=== PATIENT | male | born 1990 | race Caucasian/White ===

== ENCOUNTER 2016-12-28 22:31 | Inpatient (IN) | payer MEDICAID ==
[~2016-12-28] VITALS: Ht 177.8 cm; Wt 72.2 kg
[~2016-12-28 22:31] MED LIST: HALO10 PO; HALO5 PO
[2016-12-29 07:23] VITALS: BP 124/75
[2016-12-29] MEDS ORDERED: ZOLPIDEM TARTRATE 10 MG TABLET PO PRN (10:15)
[2016-12-29] MEDS ORDERED: LORazepam 2 MG TABLET PO PRN (10:15)
[2016-12-29 11:03] VITALS: BP 120/80
[2016-12-29 20:52] VITALS: BP 118/76
[2016-12-30 08:30] VITALS: BP 114/74
[2016-12-30 17:39] VITALS: BP 112/62
[2016-12-30] MEDS: OLANZapine 5 MG TABLET PO SCH (20:56)
[2016-12-31 08:00] VITALS: BP 121/72
[2016-12-31] MEDS: FLUoxetine HCL 20 MG CAPSULE PO SCH (09:01)
[2016-12-31 16:59] VITALS: BP 103/57
[2016-12-31] MEDS: OLANZapine 5 MG TABLET PO SCH (20:16)
[2017-01-01 09:00] VITALS: BP 117/66
[2017-01-01] MEDS: FLUoxetine HCL 20 MG CAPSULE PO SCH (09:11)
[2017-01-01 16:51] VITALS: BP 106/68
[2017-01-01] MEDS: OLANZapine 5 MG TABLET PO SCH (20:59)
[2017-01-02] MEDS: FLUoxetine HCL 20 MG CAPSULE PO SCH (09:27)
[2017-01-02 09:30] VITALS: BP 125/69
[2017-01-02 16:45] VITALS: BP 120/73
[2017-01-02] MEDS: OLANZapine 5 MG TABLET PO SCH (21:10)
[2017-01-03 09:30] VITALS: BP 112/61
[2017-01-03] MEDS: FLUoxetine HCL 20 MG CAPSULE PO SCH (10:07)
[2017-01-03 17:00] VITALS: BP 118/76
[2017-01-03] MEDS: OLANZapine 5 MG TABLET PO SCH (20:54)
[2017-01-04 08:00] VITALS: BP 110/68
[2017-01-04] MEDS: FLUoxetine HCL 20 MG CAPSULE PO SCH (08:57)
[2017-01-04 16:30] VITALS: BP 105/60
[2017-01-04] MEDS: OLANZapine 5 MG TABLET PO SCH (20:30)
[2017-01-05] MEDS: FLUoxetine HCL 20 MG CAPSULE PO SCH (08:42)
[2017-01-05 10:02] VITALS: BP 107/71
[2017-01-05 16:35] VITALS: BP 116/74
[2017-01-05] MEDS: OLANZapine 5 MG TABLET PO SCH (20:10)
[2017-01-06 08:53] VITALS: BP 123/84
[2017-01-06] MEDS: FLUoxetine HCL 20 MG CAPSULE PO SCH (09:04)
[2017-01-06 20:20] VITALS: BP 112/72
[2017-01-06] MEDS: OLANZapine 5 MG TABLET PO SCH (20:57)
[2017-01-07 08:43] VITALS: BP 129/75
[2017-01-07] MEDS: FLUoxetine HCL 20 MG CAPSULE PO SCH (10:27)
[2017-01-07] MEDS ORDERED: OLAN10TA3 PO (10:54)
[2017-01-07] MEDS ORDERED: FLUO-191 PO (10:54)
[2017-01-07] MEDS ORDERED: OLANZapine 10 MG TABLET PO SCH (21:00)
[2017-01-08] MEDS ORDERED: FLUoxetine HCL 20 MG CAPSULE PO SCH (09:00)
== END 2017-01-07 13:30 | disposition home or self-care (01) | DRG 750 ==
LOC: 3EI 12-29 10:24
PROVIDERS: ADMIT Psychiatry & Neurology Psychiatry; ATTEND Psychiatry & Neurology Psychiatry
DX: F25.1 Schizoaffective disorder, depressive type (principal); R45.851 Suicidal ideations; Z59.0 Homelessness; F12.90 Cannabis use, unspecified, uncomplicated; R45.84 Anhedonia; F17.200 Nicotine dependence, unspecified, uncomplicated; F19.20 Other psychoactive substance dependence, uncomplicated; F60.3 Borderline personality disorder; Z63.9 Problem related to primary support group, unspecified; L55.9 Sunburn, unspecified; L81.8 Other specified disorders of pigmentation

== ENCOUNTER 2019-02-28 19:07 | Inpatient (IN) | payer MEDICAID, OTHER ==
[~2019-02-28] VITALS: Ht 180.3 cm; Wt 75.2 kg
[~2019-02-28 19:07] MED LIST changes: +FLUO-191 PO; -HALO10 PO; -HALO5 PO; +OLAN10TA3 PO
[2019-02-28] MEDS ORDERED: DiphenhydrAMINE HCL 50 MG/ML VIAL IM ONE (19:45)
[2019-02-28] MEDS ORDERED: HALOPERIDOL LACTATE 5 MG/ML VIAL IM ONE (19:45)
[2019-02-28] MEDS ORDERED: LORazepam 2 MG/ML VIAL IM ONE ×2 (19:45→21:45)
[2019-02-28 20:55] LABS: BASOPHILS % (AUTO) 0.8 % (0.0-2.0); EOSINOPHILS % (AUTO) 0.1 % (1.0-6.0); HEMATOCRIT 40.4 % (41-53); HEMOGLOBIN 13.8 g/dL (13.5-17.5); LYMPHOCYTES # (AUTO) 1.5 K/uL (1.0-4.8); LYMPHOCYTES % (AUTO) 21.7 % (22.0-44.0); MEAN CORPUSCULAR HEMOGLOBIN 30.7 pg (26.0-34.0); MEAN CORPUSCULAR VOLUME 90 fL (80-100); MONOCYTES # (AUTO) 0.6 K/uL (0.1-1.0); MONOCYTES % (AUTO) 8.8 % (2.0-9.0); NEUTROPHILS # (AUTO) 4.8 K/uL (1.8-7.7); NEUTROPHILS % (AUTO) 68.6 % (40.0-70.0); PLATELET COUNT (AUTO) 242 K/uL (150-450); RED BLOOD CELL COUNT(AUTO) 4.48 MIL/uL (4.50-5.90); RED CELL DISTRIBUTION WIDTH 13.1 % (11.5-14.5)
[2019-02-28 21:27] LABS: ANION GAP 6 mmol/L (8-16); CALCIUM, TOTAL 9.1 mg/dL (8.8-10.5); CARBON DIOXIDE 26 mmol/L (22-29); CHLORIDE 104 mmol/L (98-107); CREATININE 1.11 mg/dL (0.60-1.30); GLOMERULAR FILTR. RATE CALC > 60 mL/min (>60); GLUCOSE,RANDOM 107 mg/dL (70-110); POTASSIUM 3.4 mmol/L (3.5-5.1); SODIUM SERUM 136 mmol/L (136-145); UREA NITROGEN, BLOOD 15 mg/dL (7-18)
[2019-02-28 21:33] LABS: SALICYLATE < 2.8 mg/dL (2.8-20.0)
[2019-02-28 21:40] LABS: ALANINE AMINOTRANSFERASE 27 U/L (12-78); ALBUMIN 4.3 g/dL (3.4-5.0); ALKALINE PHOSPHATASE 42 U/L (46-116); ASPARTATE AMINOTRANSFERASE 54 U/L (15-37); BILIRUBIN,TOTAL 0.8 mg/dL (0.1-1.0); TOTAL PROTEIN, SERUM 7.1 g/dL (6.4-8.2)
[2019-02-28 21:44] LABS: CREATINE KINASE, TOTAL ONLY 1313 U/L (39-308)
[2019-02-28 21:55] LABS: ACETAMINOPHEN < 2 mcg/mL (10-30)
[2019-02-28] MEDS ORDERED: MIDAZOLAM HCL 2 MG/2 ML VIAL IVP ONE (23:00)
[2019-02-28] MEDS ORDERED: MIDAZOLAM HCL 5 MG/ML VIAL IM ONE (23:00)
[2019-03-01] MEDS ORDERED: MIDAZOLAM HCL 2 MG/2 ML VIAL IVP ONE
[2019-03-01 00:55] LABS: APPEARANCE,URINE CLEAR (CLEAR); GLUCOSE, URINE (UA) NEGATIVE (NEGATIVE); KETONES,URINE TRACE mg/dL (NEGATIVE); LEUKOCYTE ESTERASE ,URINE NEGATIVE (NEGATIVE); NITRATE,URINE NEGATIVE (NEGATIVE); OCCULT BLOOD,URINE NEGATIVE (NEGATIVE); PH,URINE 5.5 (5.0-8.0); PROTEIN,URINE NEGATIVE (NEGATIVE)
[2019-03-01 00:57] LABS: BILIRUBIN,URINE PRELIM. POSITIVE (NEGATIVE)
[2019-03-01 01:00] LABS: AMPHET/METH SCREEN,URINE POSITIVE (NEGATIVE); BARBITURATE SCREEN, URINE NEGATIVE (NEGATIVE); BENZODIAZEPINES SCREEN,URINE POSITIVE (NEGATIVE); CANNABINOID SCREEN,URINE POSITIVE (NEGATIVE); COCAINE SCREEN,URINE NEGATIVE (NEGATIVE); METHADONE SCREEN, URINE NEGATIVE (NEGATIVE); OPIATE SCREEN,URINE NEGATIVE (NEGATIVE)
[2019-03-01 01:03] LABS: PHENCYCLIDINE SCREEN,URINE NEGATIVE (NEGATIVE)
[2019-03-01 01:13] LABS: RBC,URINE 0-2 /HPF (0-2); WBC,URINE 0-2 /HPF (0-5)
[2019-03-01 01:14] LABS: BACTERIA,URINE Few /HPF (None Seen); MUCUS,URINE Moderate LPF (None Seen); SQUAMOUS EPITHELIAL CELL,UR Few /LPF (None Seen)
[2019-03-01] MEDS ORDERED: ZOLPIDEM TARTRATE 10 MG TABLET PO PRN (09:30)
[2019-03-01] MEDS ORDERED: LORazepam 2 MG TABLET PO PRN (09:30)
[2019-03-01] MEDS ORDERED: HALOPERIDOL 5 MG TABLET PO PRN (09:30)
[2019-03-01 13:50] VITALS: BP 118/62
[2019-03-01] MEDS ORDERED: DiphenhydrAMINE HCL 50 MG/ML VIAL ONE (14:54)
[2019-03-01] MEDS ORDERED: LORazepam 2 MG/ML VIAL ONE (14:54)
[2019-03-01] MEDS ORDERED: HALOPERIDOL LACTATE 5 MG/ML VIAL ONE (14:54)
[2019-03-01] MEDS ORDERED: LORazepam 2 MG/ML VIAL IM ONE (15:00)
[2019-03-01] MEDS ORDERED: DiphenhydrAMINE HCL 50 MG/ML VIAL IM ONE (15:00)
[2019-03-01] MEDS ORDERED: HALOPERIDOL LACTATE 5 MG/ML VIAL IM ONE (15:00)
[2019-03-02] MEDS ORDERED: POTASSIUM CHLORIDE 20 MEQ ER TABLET PO ONE (13:00)
== END 2019-03-03 15:05 | disposition home or self-care (01) | DRG 750 ==
LOC: EMS 19:09 → 3EI 03-01 12:19 → 3EC 03-01 12:27
PROVIDERS: ADMIT Psychiatry & Neurology Psychiatry; ATTEND Psychiatry & Neurology Psychiatry
DX: F25.9 Schizoaffective disorder, unspecified (principal); G40.909 Epilepsy, unspecified, not intractable, without status epilepticus; F15.10 Other stimulant abuse, uncomplicated; F90.9 Attention-deficit hyperactivity disorder, unspecified type; F17.210 Nicotine dependence, cigarettes, uncomplicated; Z91.14 Patient's other noncompliance with medication regimen; Z79.899 Other long term (current) drug therapy
CPT/HCPCS: 70450; 93005; 99291; G0480; G0481; J1200; J1630; J2060; J2250

== ENCOUNTER 2019-09-12 14:26 | Emergency (ER) | payer MEDICAID, OTHER ==
[~2019-09-12] VITALS: Ht 180.3 cm; Wt 66.5 kg
[2019-09-12] MEDS ORDERED: LORazepam 2 MG/ML VIAL IVP ONE (15:15)
[2019-09-12 15:37] LABS: BASOPHILS % (AUTO) 1.2 % (0.0-2.0); EOSINOPHILS % (AUTO) 1.9 % (1.0-6.0); HEMATOCRIT 41.9 % (41-53); HEMOGLOBIN 14.2 g/dL (13.5-17.5); LYMPHOCYTES # (AUTO) 1.7 K/uL (1.0-4.8); LYMPHOCYTES % (AUTO) 22.1 % (22.0-44.0); MEAN CORPUSCULAR HEMOGLOBIN 30.4 pg (26.0-34.0); MEAN CORPUSCULAR HGB CONC 33.9 G/dL (31.0-37.0); MEAN CORPUSCULAR VOLUME 90 fL (80-100); MONOCYTES # (AUTO) 0.7 K/uL (0.1-1.0); MONOCYTES % (AUTO) 9.1 % (2.0-9.0); NEUTROPHILS % (AUTO) 65.7 % (40.0-70.0); PLATELET COUNT (AUTO) 302 K/uL (150-450); RED BLOOD CELL COUNT(AUTO) 4.67 MIL/uL (4.50-5.90); RED CELL DISTRIBUTION WIDTH 13.2 % (11.5-14.5)
[2019-09-12 15:48] LABS: ANION GAP 8 mmol/L (8-16); CARBON DIOXIDE 27 mmol/L (22-29); CHLORIDE 99 mmol/L (98-107); CREATININE 1.06 mg/dL (0.60-1.30); GLOMERULAR FILTR. RATE CALC > 60 mL/min (>60); GLUCOSE,RANDOM 126 mg/dL (70-110); POTASSIUM 3.5 mmol/L (3.5-5.1); SODIUM SERUM 134 mmol/L (136-145); UREA NITROGEN, BLOOD 24 mg/dL (7-18)
[2019-09-12 15:50] LABS: ALANINE AMINOTRANSFERASE 27 U/L (12-78); ALBUMIN 4.2 g/dL (3.4-5.0); ALKALINE PHOSPHATASE 62 U/L (46-116); ASPARTATE AMINOTRANSFERASE 29 U/L (15-37); BILIRUBIN,TOTAL 0.5 mg/dL (0.1-1.0); LIPASE 69 U/L (73-393); TOTAL PROTEIN, SERUM 7.6 g/dL (6.4-8.2)
[2019-09-12] MEDS ORDERED: SODIUM CHLORIDE 0.9% 1,000 ML IV ONE (16:45)
[2019-09-12 16:59] LABS: AMPHET/METH SCREEN,URINE POSITIVE (NEGATIVE); BARBITURATE SCREEN, URINE NEGATIVE (NEGATIVE); BENZODIAZEPINES SCREEN,URINE NEGATIVE (NEGATIVE); CANNABINOID SCREEN,URINE POSITIVE (NEGATIVE); COCAINE SCREEN,URINE NEGATIVE (NEGATIVE); METHADONE SCREEN, URINE NEGATIVE (NEGATIVE); OPIATE SCREEN,URINE NEGATIVE (NEGATIVE)
[2019-09-12 17:01] LABS: PHENCYCLIDINE SCREEN,URINE NEGATIVE (NEGATIVE)
[2019-09-12 18:08] VITALS: BP 116/72
== END 2019-09-12 19:21 | disposition home or self-care (01) ==
LOC: EMS 14:28
DX: R11.10 Vomiting, unspecified (principal); F15.10 Other stimulant abuse, uncomplicated; F17.210 Nicotine dependence, cigarettes, uncomplicated; F20.9 Schizophrenia, unspecified; F12.90 Cannabis use, unspecified, uncomplicated
CPT/HCPCS: 36415; 80053; 80307; 83690; 85025; 96361; 96374; 99283; J2060; J7030

== ENCOUNTER 2019-12-30 14:24 | Inpatient (IN) | payer MEDICAID ==
[2019-12-31 01:20] VITALS: BP 127/71
[2019-12-31] MEDS ORDERED: ZOLPIDEM TARTRATE 10 MG TABLET PO PRN (02:00)
[2019-12-31] MEDS ORDERED: HALOPERIDOL 5 MG TABLET PO PRN (02:00)
[2019-12-31] MEDS ORDERED: PNEUMOCOCCAL VACCINE POLYVALENT 0.5 ML VIAL [PPSV23] IM ONE (02:45)
[2019-12-31] MEDS ORDERED: ALBUTEROL SULFATE HFA 90 MCG/PUFF 8 GM INHALER IH PRN (08:30)
[2019-12-31] MEDS ORDERED: ACETAMINOPHEN 325 MG TABLET PO PRN (08:30)
[2019-12-31] MEDS ORDERED: IBUPROFEN 400 MG TABLET PO PRN (08:30)
[2019-12-31] MEDS ORDERED: NICOTINE 14 MG/24 HOUR PATCH TD PRN (08:30)
[2019-12-31] MEDS ORDERED: MAGNESIUM HYDROXIDE SUSPENSION 30 ML UDCUP PO PRN (08:30)
[2019-12-31] MEDS ORDERED: GuaiFENesin/D-METHORPHAN [SUGAR-FREE] 200-20MG/10 ML SYRUP UDCUP PO PRN (08:30)
[2019-12-31] MEDS ORDERED: MAG HYDROX/AL HYDROX/SIMETH ES 30 ML SUSPENSION UDCUP PO PRN (08:30)
[2019-12-31] MEDS ORDERED: PETROLATUM,WHITE 28 GM JELLY TP PRN (08:30)
[2019-12-31] MEDS ORDERED: ONDANSETRON HCL 4 MG TABLET PO PRN (08:30)
[2019-12-31] MEDS ORDERED: LOPERAMIDE HCL 2 MG CAPSULE PO PRN (08:30)
[2019-12-31] MEDS ORDERED: CloNIDine HCL 0.1 MG TABLET PO PRN (08:30)
[2019-12-31] MEDS ORDERED: DOCUSATE SODIUM 100 MG CAPSULE PO PRN (08:30)
[2019-12-31 16:20] VITALS: BP 128/78
[2020-01-01 02:55] VITALS: BP 125/75
[2020-01-01 08:12] VITALS: BP 126/73
[2020-01-01] MEDS: LORazepam 2 MG TABLET PO PRN (08:51)
[2020-01-01 16:16] VITALS: BP 128/74
[2020-01-01] MEDS: RisperiDONE 0.5 MG TABLET PO SCH (20:09)
[2020-01-01] MEDS: BENZTROPINE MESYLATE 0.5 MG TABLET PO SCH (20:09)
[2020-01-02] MEDS: BENZTROPINE MESYLATE 0.5 MG TABLET PO SCH ×2 (08:37→20:11)
[2020-01-02] MEDS: LORazepam 2 MG TABLET PO PRN (08:37)
[2020-01-02] MEDS: DULoxetine HCL 20 MG CAPSULE PO SCH (08:37)
[2020-01-02] MEDS: RisperiDONE 0.5 MG TABLET PO SCH (20:11)
[2020-01-03 06:34] VITALS: BP 129/76
[2020-01-03] MEDS: DULoxetine HCL 20 MG CAPSULE PO SCH (08:44)
[2020-01-03] MEDS: BENZTROPINE MESYLATE 0.5 MG TABLET PO SCH (08:44)
[2020-01-03] MEDS ORDERED: RISP0.5T20 PO (11:22)
[2020-01-03] MEDS ORDERED: DULO20CA27 PO (11:22)
[2020-01-03] MEDS ORDERED: BENZ0.5T44 PO (11:22)
== END 2020-01-03 14:20 | disposition home or self-care (01) | DRG 885 ==
LOC: B3A 12-31 01:14
PROVIDERS: ADMIT Psychiatry & Neurology Child & Adolescent Psychiatry; ATTEND Psychiatry & Neurology Child & Adolescent Psychiatry
DX: F20.0 Paranoid schizophrenia (principal); G92 Toxic encephalopathy; R45.851 Suicidal ideations; F10.10 Alcohol abuse, uncomplicated; G40.909 Epilepsy, unspecified, not intractable, without status epilepticus; Z79.899 Other long term (current) drug therapy
CPT/HCPCS: 90732; G0009; Z7610

== ENCOUNTER 2022-10-11 15:48 | Inpatient (IN) | payer MEDICAID ==
[~2022-10-11] VITALS: Ht 180.3 cm; Wt 95.7 kg
[~2022-10-11 15:48] MED LIST changes: +BENZ0.5T49 PO; +DULO20CA71 PO; -FLUO-191 PO; -OLAN10TA3 PO; +RISP0.5T39 PO
[2022-10-11] MEDS ORDERED: ZOLPIDEM TARTRATE 10 MG TABLET PO PRN (21:00)
[2022-10-11 21:20] VITALS: BP 130/80; PULSE 70; RESP 18; TEMP 97.8
[2022-10-11 22:04] VITALS: BP 141/80; PULSE 68; RESP 18; TEMP 97.8
[2022-10-11] MEDS ORDERED: PROP10TA73 PO (22:29)
[2022-10-11] MEDS ORDERED: DIVA500T53 PO (22:29)
[2022-10-11] MEDS ORDERED: OLAN5TAB52 PO (22:29)
[2022-10-11] MEDS ORDERED: MULT-1366 PO (22:29)
[2022-10-11] MEDS ORDERED: PRAZ5 PO (22:29)
[2022-10-11] MEDS: NICOTINE 21 MG/24 HOUR PATCH TD SCH (23:10)
[2022-10-12] MEDS ORDERED: ALBUTEROL SULFATE HFA 90 MCG/PUFF 8 GM INHALER IH PRN (08:15)
[2022-10-12] MEDS ORDERED: DOCUSATE SODIUM 100 MG CAPSULE PO PRN (08:15)
[2022-10-12] MEDS ORDERED: GuaiFENesin/D-METHORPHAN [SUGAR-FREE] 200-20MG/10 ML SYRUP UDCUP PO PRN (08:15)
[2022-10-12] MEDS ORDERED: PETROLATUM,WHITE 28 GM JELLY TP PRN (08:15)
[2022-10-12] MEDS ORDERED: NICOTINE 14 MG/24 HOUR PATCH TD PRN (08:15)
[2022-10-12] MEDS ORDERED: MAGNESIUM HYDROXIDE SUSPENSION 30 ML UDCUP PO PRN (08:15)
[2022-10-12] MEDS ORDERED: ONDANSETRON HCL 4 MG TABLET PO PRN (08:15)
[2022-10-12] MEDS ORDERED: CloNIDine HCL 0.1 MG TABLET PO PRN (08:15)
[2022-10-12] MEDS ORDERED: LOPERAMIDE HCL 2 MG CAPSULE PO PRN (08:15)
[2022-10-12] MEDS ORDERED: IBUPROFEN 400 MG TABLET PO PRN (08:15)
[2022-10-12] MEDS ORDERED: ACETAMINOPHEN 325 MG TABLET PO PRN (08:15)
[2022-10-12] MEDS: NICOTINE 21 MG/24 HOUR PATCH TD SCH (08:48)
[2022-10-12 09:20] VITALS: BP 130/74; PULSE 71; RESP 18; TEMP 98.1; O2SAT 98
[2022-10-12] MEDS ORDERED: PROP10TA72 PO (11:52)
[2022-10-12] MEDS ORDERED: MELO-106 PO (11:52)
[2022-10-12] MEDS ORDERED: OLAN10 PO (11:52)
[2022-10-12] MEDS ORDERED: NALO4SPR3 NASAL (11:52)
[2022-10-12] MEDS ORDERED: METF-1211 PO (11:52)
[2022-10-12] MEDS ORDERED: LEVO25TA9 PO (11:52)
[2022-10-12] MEDS: GABAPENTIN 100 MG CAPSULE PO SCH ×3 (11:58→20:32)
[2022-10-12 12:29] LABS: APPEARANCE,URINE CLEAR (CLEAR); BILIRUBIN,URINE NEGATIVE (NEGATIVE); GLUCOSE, URINE (UA) NEGATIVE (NEGATIVE); KETONES,URINE NEGATIVE (NEGATIVE); LEUKOCYTE ESTERASE ,URINE NEGATIVE (NEGATIVE); NITRATE,URINE NEGATIVE (NEGATIVE); OCCULT BLOOD,URINE NEGATIVE (NEGATIVE); PROTEIN,URINE NEGATIVE (NEGATIVE); SPECIFIC GRAVITIY, URINE 1.008 (1.003-1.030); UROBILINOGEN,URINE <=1.0 mg/dL (<=1.0)
[2022-10-12] MEDS: NICOTINE POLACRILEX 2 MG LOZENGE PO PRN ×2 (12:32→15:48)
[2022-10-12 12:43] LABS: AMPHET/METH SCREEN,URINE NEGATIVE (NEGATIVE); BARBITURATE SCREEN, URINE NEGATIVE (NEGATIVE); BENZODIAZEPINES SCREEN,URINE NEGATIVE (NEGATIVE); CANNABINOID SCREEN,URINE NEGATIVE (NEGATIVE); COCAINE SCREEN,URINE NEGATIVE (NEGATIVE); METHADONE SCREEN, URINE NEGATIVE (NEGATIVE); OPIATE SCREEN,URINE NEGATIVE (NEGATIVE); PHENCYCLIDINE SCREEN,URINE NEGATIVE (NEGATIVE)
[2022-10-12] MEDS: DIVALPROEX SODIUM 500 MG ER TABLET PO SCH (20:32)
[2022-10-12] MEDS: PROPRANOLOL HCL 10 MG TABLET PO SCH (20:32)
[2022-10-12] MEDS: OLANZapine 10 MG TABLET PO SCH (20:32)
[2022-10-12] MEDS: PRAZOSIN HCL 5 MG CAPSULE PO SCH (20:32)
[2022-10-12 23:07] VITALS: RESP 18; TEMP 97.9
[2022-10-13 00:15] VITALS: BP 128/72; PULSE 69; RESP 18; TEMP 98; O2SAT 98
[2022-10-13] MEDS: GABAPENTIN 100 MG CAPSULE PO SCH ×3 (08:08→20:43)
[2022-10-13 08:55] VITALS: BP 97/55; PULSE 56; RESP 16; TEMP 97.9; O2SAT 95
[2022-10-13] MEDS: NICOTINE POLACRILEX 2 MG LOZENGE PO PRN ×3 (11:39→20:43)
[2022-10-13 20:15] VITALS: BP 116/66; PULSE 74; RESP 18; TEMP 98.3; O2SAT 97
[2022-10-13] MEDS: DIVALPROEX SODIUM 500 MG ER TABLET PO SCH (20:43)
[2022-10-13] MEDS: PRAZOSIN HCL 5 MG CAPSULE PO SCH (20:43)
[2022-10-13] MEDS: PROPRANOLOL HCL 10 MG TABLET PO SCH (20:44)
[2022-10-13] MEDS: OLANZapine 10 MG TABLET PO SCH (20:47)
[2022-10-14] MEDS: GABAPENTIN 100 MG CAPSULE PO SCH (08:03)
[2022-10-14 08:14] VITALS: BP 100/60; PULSE 63; RESP 17; TEMP 98.7; O2SAT 96
[2022-10-14] MEDS: NICOTINE POLACRILEX 2 MG LOZENGE PO PRN ×3 (12:37→18:51)
[2022-10-14] MEDS: GABAPENTIN 300 MG CAPSULE PO SCH ×2 (16:17→20:34)
[2022-10-14 20:25] VITALS: BP 122/72; PULSE 85; RESP 17; TEMP 97.9; O2SAT 98
[2022-10-14] MEDS: PROPRANOLOL HCL 10 MG TABLET PO SCH (20:34)
[2022-10-14] MEDS: OLANZapine 10 MG TABLET PO SCH (20:34)
[2022-10-14] MEDS: PRAZOSIN HCL 5 MG CAPSULE PO SCH (20:34)
[2022-10-14] MEDS: DIVALPROEX SODIUM 500 MG ER TABLET PO SCH (20:34)
[2022-10-15 08:04] VITALS: BP 96/61; PULSE 60; RESP 18; TEMP 98.3; O2SAT 96
[2022-10-15] MEDS: GABAPENTIN 300 MG CAPSULE PO SCH ×3 (08:09→20:16)
[2022-10-15] MEDS: NICOTINE POLACRILEX 2 MG LOZENGE PO PRN ×3 (11:13→19:59)
[2022-10-15 20:03] VITALS: BP 108/56; PULSE 67; RESP 19; TEMP 97.7; O2SAT 95
[2022-10-15] MEDS: PROPRANOLOL HCL 10 MG TABLET PO SCH (20:16)
[2022-10-15] MEDS: PRAZOSIN HCL 5 MG CAPSULE PO SCH (20:16)
[2022-10-15] MEDS: DIVALPROEX SODIUM 500 MG ER TABLET PO SCH (20:16)
[2022-10-15] MEDS: OLANZapine 10 MG TABLET PO SCH (20:16)
[2022-10-16] MEDS: GABAPENTIN 400 MG CAPSULE PO SCH ×2 (08:07→16:45)
[2022-10-16 08:14] VITALS: BP 114/60; PULSE 60; RESP 17; TEMP 98.2; O2SAT 96
[2022-10-16] MEDS: NICOTINE POLACRILEX 2 MG LOZENGE PO PRN ×3 (11:35→20:09)
[2022-10-16] MEDS: DIVALPROEX SODIUM 500 MG ER TABLET PO SCH (20:08)
[2022-10-16] MEDS: OLANZapine 10 MG TABLET PO SCH (20:08)
[2022-10-16] MEDS: PROPRANOLOL HCL 10 MG TABLET PO SCH (20:09)
[2022-10-16] MEDS: PRAZOSIN HCL 5 MG CAPSULE PO SCH (20:09)
[2022-10-16 20:15] VITALS: BP 129/77; PULSE 76; RESP 18; TEMP 97.9; O2SAT 98
[2022-10-17] MEDS: GABAPENTIN 300 MG CAPSULE PO SCH (08:06)
[2022-10-17 08:14] VITALS: BP 101/60; PULSE 60; RESP 17; TEMP 97.6; O2SAT 96
[2022-10-17] MEDS: NICOTINE POLACRILEX 2 MG LOZENGE PO PRN ×3 (10:10→20:12)
[2022-10-17] MEDS: DIVALPROEX SODIUM 500 MG ER TABLET PO SCH (20:12)
[2022-10-17] MEDS: PROPRANOLOL HCL 10 MG TABLET PO SCH (20:12)
[2022-10-17] MEDS: PRAZOSIN HCL 5 MG CAPSULE PO SCH (20:12)
[2022-10-17] MEDS: OLANZapine 10 MG TABLET PO SCH (20:12)
[2022-10-17 23:05] VITALS: BP 110/68; PULSE 71; RESP 17; TEMP 98; O2SAT 98
[2022-10-18] MEDS: GABAPENTIN 300 MG CAPSULE PO SCH (08:22)
[2022-10-18 11:22] VITALS: BP 103/61; PULSE 57; RESP 18; TEMP 97.6; O2SAT 96
[2022-10-18] MEDS: NICOTINE POLACRILEX 2 MG LOZENGE PO PRN ×3 (11:45→18:27)
[2022-10-18 20:09] VITALS: BP 128/73; PULSE 79; RESP 18; TEMP 98.2; O2SAT 97
[2022-10-18] MEDS: DIVALPROEX SODIUM 500 MG ER TABLET PO SCH (20:23)
[2022-10-18] MEDS: PRAZOSIN HCL 5 MG CAPSULE PO SCH (20:23)
[2022-10-18] MEDS: OLANZapine 10 MG TABLET PO SCH (20:23)
[2022-10-18] MEDS: PROPRANOLOL HCL 10 MG TABLET PO SCH (20:24)
[2022-10-19] MEDS: GABAPENTIN 300 MG CAPSULE PO SCH (08:08)
[2022-10-19 08:38] LABS: BASOPHILS % (AUTO) 0.9 % (0.0-2.0); EOSINOPHILS % (AUTO) 3.1 % (1.0-6.0); HEMATOCRIT 44.3 % (41-53); LYMPHOCYTES # (AUTO) 2.5 K/uL (1.0-4.8); LYMPHOCYTES % (AUTO) 56.5 % (22.0-44.0); MEAN CORPUSCULAR HEMOGLOBIN 31.8 pg (26.0-34.0); MEAN CORPUSCULAR HGB CONC 33.8 G/dL (31.0-37.0); MEAN CORPUSCULAR VOLUME 94 fL (80-100); MONOCYTES # (AUTO) 0.4 K/uL (0.1-1.0); MONOCYTES % (AUTO) 9.3 % (2.0-9.0); NEUTROPHILS # (AUTO) 1.3 K/uL (1.8-7.7); NEUTROPHILS % (AUTO) 30.2 % (40.0-70.0); PLATELET COUNT (AUTO) 208 K/uL (150-450); RED BLOOD CELL COUNT(AUTO) 4.71 MIL/uL (4.50-5.90); RED CELL DISTRIBUTION WIDTH 12.4 % (11.5-14.5)
[2022-10-19 08:45] VITALS: BP 102/55; PULSE 60; RESP 18; TEMP 97.8; O2SAT 98
[2022-10-19 08:58] LABS: HEMOGLOBIN A1C 5.1 % (3.8-5.6)
[2022-10-19 09:11] LABS: ALANINE AMINOTRANSFERASE 12 U/L (12-78); ALBUMIN 3.4 g/dL (3.4-5.0); ALKALINE PHOSPHATASE 46 U/L (46-116); ANION GAP 7 mmol/L (8-16); ASPARTATE AMINOTRANSFERASE 13 U/L (15-37); BILIRUBIN,TOTAL 0.3 mg/dL (0.1-1.0); CALCIUM, TOTAL 8.8 mg/dL (8.8-10.5); CARBON DIOXIDE 28 mmol/L (22-29); CHLORIDE 103 mmol/L (98-107); CHOL/HDL RATIO 4.1 (4.2-7.3); CHOLESTEROL 157 mg/dL (131-200); CREATININE 0.83 mg/dL (0.60-1.30); FREE T4 (FREE THYROXINE) 0.81 ng/dL (0.76-1.46); GLOMERULAR FILTR. RATE CALC > 60 mL/min (>60); GLUCOSE,RANDOM 122 mg/dL (70-110); HDL CHOLESTEROL 38 mg/dL (40-60); LDL CHOL (CALC.) 87 mg/dL (0-130); POTASSIUM 3.9 mmol/L (3.5-5.1); SODIUM SERUM 138 mmol/L (136-145); THYROID STIMULATING HORMONE 3.22 uIU/mL (0.36-3.74); TOTAL PROTEIN, SERUM 6.7 g/dL (6.4-8.2); TRIGLYCERIDES 161 mg/dL (15-150); VALPROIC ACID 54 mcg/mL (50-100)
[2022-10-19] MEDS: NICOTINE POLACRILEX 2 MG LOZENGE PO PRN ×3 (12:11→19:56)
[2022-10-19] MEDS: OLANZapine 10 MG TABLET PO SCH (20:04)
[2022-10-19] MEDS: PRAZOSIN HCL 5 MG CAPSULE PO SCH (20:04)
[2022-10-19] MEDS: PROPRANOLOL HCL 10 MG TABLET PO SCH (20:04)
[2022-10-19] MEDS: DIVALPROEX SODIUM 500 MG ER TABLET PO SCH (20:04)
[2022-10-19 20:17] VITALS: BP 132/75; PULSE 72; RESP 18; TEMP 98.2; O2SAT 98
[2022-10-20] VITALS (8 sets, daily range): BP systolic 107–114; BP diastolic 68; PULSE 70–78; RESP 17–19; TEMP 97.6–98.2; O2SAT 97–99
[2022-10-20] MEDS: GABAPENTIN 300 MG CAPSULE PO SCH (08:05)
[2022-10-20] MEDS: NICOTINE POLACRILEX 2 MG LOZENGE PO PRN ×3 (11:06→20:05)
[2022-10-20] MEDS: PROPRANOLOL HCL 10 MG TABLET PO SCH (20:03)
[2022-10-20] MEDS: OLANZapine 10 MG TABLET PO SCH (20:03)
[2022-10-20] MEDS: DIVALPROEX SODIUM 500 MG ER TABLET PO SCH (20:03)
[2022-10-20] MEDS: PRAZOSIN HCL 5 MG CAPSULE PO SCH (20:03)
[2022-10-21 00:10] VITALS: RESP 18
[2022-10-21] MEDS: GABAPENTIN 300 MG CAPSULE PO SCH (08:01)
[2022-10-21 08:50] VITALS: BP 100/56; PULSE 62; RESP 17; TEMP 97.2; O2SAT 96
[2022-10-21] MEDS: NICOTINE POLACRILEX 2 MG LOZENGE PO PRN ×3 (10:43→21:57)
[2022-10-21] MEDS: PROPRANOLOL HCL 10 MG TABLET PO SCH (20:36)
[2022-10-21] MEDS: PRAZOSIN HCL 5 MG CAPSULE PO SCH (20:36)
[2022-10-21] MEDS: DIVALPROEX SODIUM 500 MG ER TABLET PO SCH (20:36)
[2022-10-21] MEDS: OLANZapine 10 MG TABLET PO SCH (20:36)
[2022-10-21 21:26] VITALS: BP 126/70; PULSE 82; RESP 18; TEMP 98.1; O2SAT 98
[2022-10-22] MEDS: GABAPENTIN 300 MG CAPSULE PO SCH (08:18)
[2022-10-22] MEDS: NICOTINE POLACRILEX 2 MG LOZENGE PO PRN ×3 (08:19→20:58)
[2022-10-22 09:00] VITALS: BP 130/76; PULSE 82; RESP 18; TEMP 98.1
[2022-10-22] MEDS: PRAZOSIN HCL 5 MG CAPSULE PO SCH (20:48)
[2022-10-22] MEDS: PROPRANOLOL HCL 10 MG TABLET PO SCH (20:48)
[2022-10-22] MEDS: OLANZapine 10 MG TABLET PO SCH (20:58)
[2022-10-22] MEDS: DIVALPROEX SODIUM 500 MG ER TABLET PO SCH (20:58)
[2022-10-22 22:40] VITALS: BP 128/82; PULSE 83; RESP 18; TEMP 98; O2SAT 98
[2022-10-23] MEDS: GABAPENTIN 300 MG CAPSULE PO SCH (08:15)
[2022-10-23 09:05] VITALS: BP 107/49; PULSE 62; RESP 17; TEMP 98.4; O2SAT 95
[2022-10-23] MEDS: NICOTINE POLACRILEX 2 MG LOZENGE PO PRN ×3 (10:48→20:55)
[2022-10-23] MEDS ORDERED: ZOLPIDEM TARTRATE 10 MG TABLET PO PRN (12:00)
[2022-10-23] MEDS ORDERED: HALOPERIDOL 5 MG TABLET PO PRN (12:00)
[2022-10-23] MEDS: HydrOXYzine PAMOATE 25 MG CAPSULE PO PRN ×2 (12:50→21:13)
[2022-10-23] MEDS: DIVALPROEX SODIUM 500 MG ER TABLET PO SCH (20:01)
[2022-10-23] MEDS: PROPRANOLOL HCL 10 MG TABLET PO SCH (20:01)
[2022-10-23] MEDS: OLANZapine 10 MG TABLET PO SCH (20:01)
[2022-10-23] MEDS: PRAZOSIN HCL 5 MG CAPSULE PO SCH (20:01)
[2022-10-23 20:24] VITALS: BP 134/72; PULSE 69; RESP 17; TEMP 97; O2SAT 96
[2022-10-24] MEDS: GABAPENTIN 300 MG CAPSULE PO SCH (08:04)
[2022-10-24 08:28] VITALS: BP 96/60; PULSE 68; RESP 17; TEMP 98; O2SAT 100
[2022-10-24] MEDS: NICOTINE POLACRILEX 2 MG LOZENGE PO PRN ×3 (11:22→21:24)
[2022-10-24 20:08] VITALS: BP 120/68; PULSE 70; RESP 18; TEMP 98; O2SAT 98
[2022-10-24] MEDS: HydrOXYzine PAMOATE 25 MG CAPSULE PO PRN (20:26)
[2022-10-24] MEDS: OLANZapine 10 MG TABLET PO SCH (20:26)
[2022-10-24] MEDS: PRAZOSIN HCL 5 MG CAPSULE PO SCH (20:26)
[2022-10-24] MEDS: DIVALPROEX SODIUM 500 MG ER TABLET PO SCH (20:26)
[2022-10-24] MEDS: PROPRANOLOL HCL 10 MG TABLET PO SCH (20:26)
[2022-10-25] MEDS: GABAPENTIN 300 MG CAPSULE PO SCH (08:14)
[2022-10-25 08:59] VITALS: BP 100/60; PULSE 60; RESP 17; TEMP 97.7; O2SAT 96
[2022-10-25] MEDS: NICOTINE POLACRILEX 2 MG LOZENGE PO PRN ×3 (11:25→20:44)
[2022-10-25] MEDS: PRAZOSIN HCL 5 MG CAPSULE PO SCH (20:44)
[2022-10-25] MEDS: OLANZapine 10 MG TABLET PO SCH (20:44)
[2022-10-25] MEDS: DIVALPROEX SODIUM 500 MG ER TABLET PO SCH (20:44)
[2022-10-25] MEDS: HydrOXYzine PAMOATE 25 MG CAPSULE PO PRN (20:44)
[2022-10-25] MEDS: PROPRANOLOL HCL 10 MG TABLET PO SCH (20:44)
[2022-10-26 03:57] VITALS: BP 123/67; PULSE 98; RESP 18; TEMP 97.9; O2SAT 98
[2022-10-26] MEDS: BuPROPion HCL XL 150 MG ER TABLET PO SCH (08:27)
[2022-10-26] MEDS: GABAPENTIN 400 MG CAPSULE PO SCH (08:27)
[2022-10-26 10:17] VITALS: BP 125/65; PULSE 94; RESP 16; TEMP 97.9; O2SAT 96
[2022-10-26] MEDS: NICOTINE POLACRILEX 2 MG LOZENGE PO PRN ×2 (10:49→16:48)
[2022-10-26] MEDS: PRAZOSIN HCL 5 MG CAPSULE PO SCH (20:40)
[2022-10-26] MEDS: PROPRANOLOL HCL 10 MG TABLET PO SCH (20:40)
[2022-10-26] MEDS: OLANZapine 10 MG TABLET PO SCH (20:40)
[2022-10-26] MEDS: DIVALPROEX SODIUM 500 MG ER TABLET PO SCH (20:41)
[2022-10-26 22:57] VITALS: BP 125/71; PULSE 78; RESP 18; TEMP 97.9; O2SAT 98
[2022-10-27] MEDS: GABAPENTIN 400 MG CAPSULE PO SCH (08:20)
[2022-10-27] MEDS: BuPROPion HCL XL 150 MG ER TABLET PO SCH (08:20)
[2022-10-27] MEDS: MAG HYDROX/AL HYDROX/SIMETH ES 30 ML SUSPENSION UDCUP PO PRN (10:45)
[2022-10-27 10:51] VITALS: BP 111/67; PULSE 76; RESP 16; TEMP 97.6; O2SAT 99
[2022-10-27] MEDS: NICOTINE POLACRILEX 2 MG LOZENGE PO PRN ×2 (13:44→17:05)
[2022-10-27 20:42] VITALS: BP 123/66; PULSE 80; RESP 18; TEMP 98; O2SAT 97
[2022-10-27] MEDS: PRAZOSIN HCL 5 MG CAPSULE PO SCH (20:48)
[2022-10-27] MEDS: PROPRANOLOL HCL 10 MG TABLET PO SCH (20:48)
[2022-10-27] MEDS: DIVALPROEX SODIUM 500 MG ER TABLET PO SCH (20:48)
[2022-10-27] MEDS: OLANZapine 10 MG TABLET PO SCH (20:49)
[2022-10-27] MEDS: HydrOXYzine PAMOATE 25 MG CAPSULE PO PRN (22:59)
[2022-10-28 08:08] VITALS: BP 94/56; PULSE 60; RESP 17; TEMP 97.9; O2SAT 96
[2022-10-28] MEDS: BuPROPion HCL XL 150 MG ER TABLET PO SCH (08:26)
[2022-10-28] MEDS: GABAPENTIN 400 MG CAPSULE PO SCH (08:26)
[2022-10-28] MEDS: NICOTINE POLACRILEX 2 MG LOZENGE PO PRN ×2 (09:41→16:15)
[2022-10-28 20:10] VITALS: BP 106/60; PULSE 66; RESP 18; TEMP 97.8; O2SAT 97
[2022-10-28] MEDS: DIVALPROEX SODIUM 500 MG ER TABLET PO SCH (20:10)
[2022-10-28] MEDS: OLANZapine 10 MG TABLET PO SCH (20:10)
[2022-10-28] MEDS: PROPRANOLOL HCL 10 MG TABLET PO SCH (20:11)
[2022-10-28] MEDS: PRAZOSIN HCL 5 MG CAPSULE PO SCH (20:11)
[2022-10-29] MEDS: BuPROPion HCL XL 150 MG ER TABLET PO SCH (08:01)
[2022-10-29] MEDS: GABAPENTIN 400 MG CAPSULE PO SCH (08:01)
[2022-10-29 08:26] VITALS: BP 101/67; PULSE 68; RESP 17; TEMP 97.6; O2SAT 95
[2022-10-29] MEDS: NICOTINE POLACRILEX 2 MG LOZENGE PO PRN ×3 (09:30→18:22)
[2022-10-29] MEDS: HydrOXYzine PAMOATE 25 MG CAPSULE PO PRN (14:46)
[2022-10-29 20:15] VITALS: BP 116/64; PULSE 80; RESP 18; TEMP 97.9; O2SAT 97
[2022-10-29] MEDS: OLANZapine 10 MG TABLET PO SCH (20:20)
[2022-10-29] MEDS: PROPRANOLOL HCL 10 MG TABLET PO SCH (20:20)
[2022-10-29] MEDS: PRAZOSIN HCL 5 MG CAPSULE PO SCH (20:20)
[2022-10-29] MEDS: DIVALPROEX SODIUM 500 MG ER TABLET PO SCH (20:20)
[2022-10-29] MEDS: MAG HYDROX/AL HYDROX/SIMETH ES 30 ML SUSPENSION UDCUP PO PRN (21:24)
[2022-10-30] MEDS: BuPROPion HCL XL 150 MG ER TABLET PO SCH (08:01)
[2022-10-30] MEDS: GABAPENTIN 400 MG CAPSULE PO SCH ×2 (08:01→17:02)
[2022-10-30 08:26] VITALS: BP 111/69; PULSE 60; RESP 17; TEMP 98.1; O2SAT 95
[2022-10-30] MEDS: NICOTINE POLACRILEX 2 MG LOZENGE PO PRN ×4 (09:49→21:14)
[2022-10-30] MEDS ORDERED: DIVA500T69 PO (19:45)
[2022-10-30] MEDS ORDERED: GABA-1201 PO (19:45)
[2022-10-30] MEDS ORDERED: PROP10TA72 PO (19:45)
[2022-10-30] MEDS ORDERED: PRAZ5 PO (19:45)
[2022-10-30] MEDS ORDERED: BUPR-49 PO (19:45)
[2022-10-30] MEDS ORDERED: OLAN10 PO (19:45)
[2022-10-30 20:11] VITALS: BP 112/64; PULSE 72; RESP 18; TEMP 97.8; O2SAT 96
[2022-10-30] MEDS: PROPRANOLOL HCL 10 MG TABLET PO SCH (20:31)
[2022-10-30] MEDS: OLANZapine 10 MG TABLET PO SCH (20:31)
[2022-10-30] MEDS: DIVALPROEX SODIUM 500 MG ER TABLET PO SCH (20:31)
[2022-10-30] MEDS: PRAZOSIN HCL 5 MG CAPSULE PO SCH (20:31)
[2022-10-31] MEDS: MAG HYDROX/AL HYDROX/SIMETH ES 30 ML SUSPENSION UDCUP PO PRN (07:15)
[2022-10-31] MEDS: GABAPENTIN 400 MG CAPSULE PO SCH (08:09)
[2022-10-31] MEDS: BuPROPion HCL XL 150 MG ER TABLET PO SCH (08:09)
[2022-10-31 08:32] VITALS: BP 124/71; PULSE 73; RESP 17; TEMP 97.8; O2SAT 94
[2022-10-31] MEDS: NICOTINE POLACRILEX 2 MG LOZENGE PO PRN (08:34)
== END 2022-10-31 10:15 | disposition short-term general hospital (02) | DRG 750 ==
LOC: B3A 20:00 → B2S 10-21 11:00 → B3A 10-22 20:08
PROVIDERS: ADMIT Psychiatry & Neurology Psychiatry; ATTEND Psychiatry & Neurology Psychiatry
DX: F25.1 Schizoaffective disorder, depressive type (principal); E11.9 Type 2 diabetes mellitus without complications; R45.851 Suicidal ideations; E03.9 Hypothyroidism, unspecified; G40.909 Epilepsy, unspecified, not intractable, without status epilepticus; F10.10 Alcohol abuse, uncomplicated; F43.12 Post-traumatic stress disorder, chronic; Z59.00 Homelessness unspecified; Z91.018 Allergy to other foods; Z79.899 Other long term (current) drug therapy; Z79.84 Long term (current) use of oral hypoglycemic drugs
CPT/HCPCS: 80053; 80061; 80164; 80307; 81003; 83036; 84439; 84443; 85025; 99285; Q9967